=== PATIENT | male | born 1975 | race Caucasian/White ===

== ENCOUNTER 2022-12-30 15:36 | Outpatient (CLI) | payer SELFPAY ==
--- NOTE | ~2022-12-30 | XR_ITS ---
[id number] 12/30/2022 15:55 Indication: Arthrodesis. Status post surgery on November 11. Procedure: 3 views cervical spine Comparison: No prior studies for comparison. Findings: Status post anterior cervical fusion and discectomy at C3-4. Prosthetic hardware intact. No significant soft tissue abnormality. Mild multilevel uncinate hypertrophy. Lung apices are normal. V ertebral body heights are maintained. Normal cervical alignment. There is disc narrowing and endplate degenerative change at C5-6. Odontoid process is normal. Lateral masses normally aligned. Impression: 1: Mild cervical spondylosis with fusion at C3-4. Reviewed, dictated and finalized at location B. Impression: 1: Mild cervical spondylosis with fusion at C3-4.
== END 2022-12-30 15:37 | disposition home or self-care (01) ==
PROVIDERS: PCP Neurological Surgery; Visit Provider Neurological Surgery
DX: Z98.1 Arthrodesis status (principal); M47.892 Other spondylosis, cervical region
CPT/HCPCS: 72040